=== PATIENT | male | born 1980 | race Two or more races ===

== ENCOUNTER 2025-05-31 08:21 | Emergency (ER) | payer OTHER ==
[~2025-05-31] VITALS: Ht 180.3 cm; Wt 83.9 kg
[2025-05-31 08:50] VITALS: BP 136/89; O2SAT 98
[2025-05-31] MEDS ORDERED: ACETAMINOPHEN 500 MG GEL..CAP PO ONE (09:30)
[2025-05-31 10:18] LABS: BASO % 0.3 % (0.1-1.2); EOS # 0.04 (0.04-0.54); EOS % 0.5 % (0.7-7.0); INR 0.98; LYMPH # 0.86 (1.18-3.74); LYMPH % 11.2 % (19.3-53.1); MEAN PLATELET VOLUME 9.90 fl (9.4-12.4); MONO # 0.42 (0.24-0.82); MONO % 5.5 % (4.7-12.5); NEUT # 6.33 (1.56-6.13); NEUT % 82.1 % (34.0-71.1); RED CELL DISTRIBUTION WIDTH 11.7 % (11.6-14.4)
[2025-05-31 10:19] LABS: ALT/SGPT 48.0 U/L (12-78); AST/SGOT 19.0 U/L (15-37); BILIRUBIN TOTAL 1.39 mg/dL (0.3-1.2); BUN CREA RATIO 20.0 (7.0-25.0); CREATININE SERUM 0.91 mg/dL (0.70-1.30); GFR 90.51; GLOBULINA 3.1 G/DL (2.4-3.5); GLUCOSE FASTING 118.0 mg/dL (65-100); OSMOLALITY SERUM 284.0 MOSM/KG (275-295); PHOSPHOKINASE CREATININE 133.0 U/L (39-308)
[2025-05-31 11:37] LABS: URINE APPEARANCE Clear; URINE BILIRRUBIN Negative (NEGATIVE); URINE BLOOD Negative; URINE COLOR Yellow; URINE GLUCOSE Negative (NEGATIVE); URINE KETONE Trace (NEGATIVE); URINE LEUKOCYTE Negative; URINE NITRATE Negative; URINE PROTEIN Negative (NEGATIVE); URINE UROBILINOGEN 0.2 E.U./dl
[2025-05-31 11:41] LABS: URINE BACTERIA 8.3 uL (0.0-1933); URINE EPITHELIAL CELLS 1.8 uL (0.0-38.8); URINE RBC 2.9 uL (0.0-20.8); URINE WBC 2.1 uL (0.0-23.2)
[2025-05-31 11:42] LABS: URINE CAST 0.29 uL (0.0-1.40)
== END 2025-05-31 12:03 | disposition home or self-care (01) ==
LOC: ER 08:21
PROVIDERS: General Practice
DX: S01.02XA Laceration with foreign body of scalp, initial encounter (principal); Y93.18 Activity, surfing, windsurfing and boogie boarding; Y93.89 Activity, other specified; Y92.832 Beach as the place of occurrence of the external cause